=== PATIENT | male | born 1985 | race Caucasian/White ===

== ENCOUNTER 2017-09-06 01:26 | Emergency (ER) | payer SELFPAY ==
[~2017-09-06] VITALS: Ht 167.6 cm; Wt 68.0 kg
[2017-09-06] MEDS ORDERED: LEVETIRACETAM 100MG/ML ORAL SYR PO ONE (03:30)
[2017-09-06] MEDS ORDERED: SODIUM CHLORIDE IV ONE (04:00)
[2017-09-06] MEDS ORDERED: LEVETIRACETAM IV ONE (04:00)
[2017-09-06] MEDS ORDERED: LEVETIRACETAM 500MG TABLET PO SCH (04:00)
[2017-09-06 06:03] VITALS: BP 125/80
== END 2017-09-06 06:05 | disposition home or self-care (01) ==
LOC: EDBD 01:26 → ER 01:33
DX: G40.909 Epilepsy, unspecified, not intractable, without status epilepticus (principal); Z91.19 Patient's noncompliance with other medical treatment and regimen
CPT/HCPCS: 99283; Z7610